=== PATIENT | male | born 1955 | race Caucasian/White ===

== ENCOUNTER 2016-03-22 09:20 | Emergency (ER) | payer MEDICARE, OTHER ==
[2016-03-22] MEDS ORDERED: SODIUM CHLORIDE 0.9% 1,000 ML ONE (09:49)
[2016-03-22 10:12] LABS: ABSOLUTE NEUTROPHIL COUNT 3.2 K/mm3 (1.8-7.7); BASO % 0.6 % (0.2-1.0); EOS % 0.8 % (0.9-2.9); HEMATOCRIT 42.8 % (32.0-52.0); HEMOGLOBIN 14.5 gm/l (14.0-18.0); IMM NEUT% 0.2 % (0-1); LYMPH # 1.1 (1.0-4.8); LYMPH % 22.9 % (15-45); MEAN CELL VOLUME 89.9 fl (80.0-94.0); MEAN CORPUSCULAR HEMOGLOBIN 30.5 pg (27.0-31.0); MEAN CORPUSCULAR HGB CONC 33.9 g/dl (33.0-37.0); MEAN PLATELET VOLUME 9.2 fl (7.4-10.4); MONO # 0.5 (0.0-0.8); MONO % 10.1 % (4-12); NEUT % 65.4 % (43-75); PLATELET COUNT 201 K/mm3 (130-400); RED CELL DISTRIBUTION WIDTH 12.8 % (11.5-14.5)
[2016-03-22 10:23] LABS: INR 0.93; PROTHROMBIN TIME 9.8 SECONDS (9.3-11.4)
[2016-03-22 10:28] LABS: ALB/GLOB RATIO 1.6 (>1.0); ALBUMIN 4.4 gm/dL (3.5-5.7); CALCIUM 9.6 mg/dL (8.6-10.3)
== END 2016-03-22 10:54 | disposition home or self-care (01) ==
LOC: ED 09:20
DX: R04.0 Epistaxis (principal); I10 Essential (primary) hypertension; G89.29 Other chronic pain; M54.9 Dorsalgia, unspecified; Z79.891 Long term (current) use of opiate analgesic; Z79.899 Other long term (current) drug therapy; Z88.5 Allergy status to narcotic agent
CPT/HCPCS: 85025; 80053; 85610; 99283 ×2; 96360; J7030